=== PATIENT | female | born 1995 | race Two or more races ===

== ENCOUNTER 2020-03-09 01:55 | Emergency (ER) | payer SELFPAY ==
[~2020-03-09] VITALS: Ht 162.6 cm; Wt 72.0 kg
[2020-03-09 03:16] LABS: BASOPHILS % (AUTO) 1 % (0-1); EOSINOPHILS % (AUTO) 3 % (1-7); LYMPHOCYTES % (AUTO) 42 % (22-44); MEAN CORPUSCULAR HEMOGLOBIN 29.9 pg (27.0-34.8); MEAN CORPUSCULAR HGB CONC 34.1 g/dL (32.4-35.8); MEAN PLATELET VOLUME 8.1 fL (7.4-10.4); MONOCYTES % (AUTO) 8 % (2-9); NEUTROPHILS % (AUTO) 47 % (42-75); PLATELET COUNT 302 x10^3/uL (130-400); RED BLOOD COUNT 4.96 x10^6/uL (3.82-5.3); RED CELL DISTRIBUTION WIDTH 12.5 % (9.6-15.2)
[2020-03-09 03:18] LABS: MD NO
[2020-03-09 03:24] LABS: ANION GAP 9 mmol/L (5-15); CALCIUM 8.8 mg/dL (8.5-10.1); CHLORIDE 113 mmol/L (98-107); CREATININE 0.73 mg/dL (0.55-1.02)
[2020-03-09 03:36] VITALS: BP 104/77
== END 2020-03-09 03:38 | disposition home or self-care (01) ==
LOC: ED 02:57
DX: R42 Dizziness and giddiness (principal); R55 Syncope and collapse; F10.120 Alcohol abuse with intoxication, uncomplicated; R94.31 Abnormal electrocardiogram [ECG] [EKG]; Y90.9 Presence of alcohol in blood, level not specified
CPT/HCPCS: 36415; 80048; 84703; 85025; 93005; 99284